=== PATIENT | female | born 1940 | race Caucasian/White ===

== ENCOUNTER 2016-07-14 20:29 | Inpatient (IN) | payer MEDICARE, OTHER ==
[~2016-07-14] VITALS: Ht 165.1 cm; Wt 48.1 kg
[~2016-07-14 20:29] MED LIST: ACET-868 PO; ASCO-340 PO; ASPI81TA2 PO; BACL10TA PO; BISA10SU8 RC; CARB1TAB21 PO; CHOL100062 PO; CLON0.5T PO; DOCU250C75 PO; DONE10TA44 PO; ENTA200T PO; HALO0.5T4 PO; LEVO75TA PO; LORA-258 PO; MAG30ORA PO; MIRT15TA7 PO; NA P133E RC; NIFE30TA91 PO; OXYC-162 PO; TEMA7.5C12 PO; VITA1TAB20 PO
--- NOTE | 2016-07-14 21:13 | NUR ---
xr at bedside.
--- NOTE | 2016-07-14 21:15 | NUR ---
started saline lock on the left forearm g20, blood drawn and sent to lab.
--- NOTE | 2016-07-14 21:18 | NUR ---
Dr Sahu at bedside for eval.
[2016-07-14 21:29] LABS: BASOPHILS # (AUTO) 0.1 /CMM (0.0-0.2); BASOPHILS % (AUTO) 0.6 % (0.0-2.0); EOSINOPHILS # (AUTO) 0.2 /CMM (0.0-0.7); EOSINOPHILS % (AUTO) 1.8 % (0.0-6.0); HEMATOCRIT 38 % (33-45); HEMOGLOBIN 12.6 g/dL (11.5-14.8); LYMPHOCYTES # (AUTO) 2.3 /CMM (0.8-4.8); LYMPHOCYTES % (AUTO) 24.3 % (20.0-44.0); MEAN CORPUSCULAR HEMOGLOBIN 31 PG (26.0-33.0); MEAN CORPUSCULAR HGB CONC 33 g/dl (31.0-36.0); MEAN CORPUSCULAR VOLUME 94 fL (82-100); MONOCYTES # (AUTO) 0.4 /CMM (0.1-1.30); MONOCYTES % (AUTO) 3.9 % (2.0-12.0); NEUTROPHILS # (AUTO) 6.6 /CMM (1.8-8.9); NEUTROPHILS % (AUTO) 69.4 % (43.0-81.0); PLATELET COUNT (AUTO) 333 /CMM (150-450); RDW COEFFICIENT OF VARIATION 14.3 (11.5-15.0); RED BLOOD CELL COUNT(AUTO) 4.07 MIL/uL (4.0-5.2); WHITE BLOOD COUNT (AUTO) 9.6 K/uL (4.3-11.0)
[2016-07-14 21:51] LABS: CALCIUM, SERUM 8.8 mg/dL (8.5-10.1); CARBON DIOXIDE 29 mmol/L (21-32); CHLORIDE 105 mmol/L (98-107); CREATININE 0.5 mg/dL (0.6-1.3); GLUCOSE 109 mg/dL (74-106); POTASSIUM 4.4 mmol/L (3.5-5.1); SODIUM SERUM 141 mmol/L (136-145); UREA NITROGEN, BLOOD 19 mg/dL (7-18)
[2016-07-14 21:54] LABS: ALANINE AMINOTRANSFERASE 7 U/L (12-78); ALBUMIN 3.1 g/dL (3.4-5.0); ALKALINE PHOSPHATASE 60 U/L (46-116); ASPARTATE AMINOTRANSFERASE 8 U/L (15-37); BILIRUBIN,DIRECT 0.1 mg/dL (0.0-0.2); BILIRUBIN,TOTAL 0.5 mg/dL (0.2-1.0); TOTAL PROTEIN, SERUM 6.6 g/dL (6.4-8.2)
[2016-07-14 21:55] LABS: TROPONIN I < 0.017 ng/mL (0.00-0.056)
[2016-07-14] MEDS ORDERED: IV SET PRIMARY PUMP SET 1 EA INFUS.SET MC ONE (21:55)
[2016-07-14] MEDS ORDERED: LEVOFLOXACIN 750 MG /D5W 150ML 150 ML IV ONE ×2 (21:55→22:00)
[2016-07-14 21:58] LABS: INR 0.91 (0.87-1.13); PROTHROMBIN TIME 9.7 SECS (9.5-12.7)
--- NOTE | 2016-07-14 22:01 | NUR ---
REPORT GIVEN TO VIKKI. PT GOING TO BED 119-2
--- NOTE | 2016-07-14 22:11 | NUR ---
RECEIVED REPORT FROM ER NURSE HERMILA
[2016-07-14] MEDS ORDERED: IPRA0.2S49 IH (22:12)
[2016-07-14] MEDS ORDERED: VITA1CAP PO (22:12)
[2016-07-14] MEDS ORDERED: SENN8.6T6 PO (22:12)
[2016-07-14] MEDS ORDERED: MULT1TAB11 PO (22:12)
[2016-07-14] MEDS ORDERED: ALBU2.5V38 NEB (22:12)
[2016-07-14 22:19] LABS: BILIRUBIN,URINE NEGATIVE (NEGATIVE); BLOOD, URINE TRACE Ery/uL (NEGATIVE); KETONES,URINE TRACE (NEGATIVE); LEUKOCYTE ESTERASE ,URINE TRACE (NEGATIVE); NITRITE, URINE NEGATIVE (NEGATIVE); PROTEIN,URINE NEGATIVE (NEGATIVE); UGLUCOSE NEGATIVE (NEGATIVE); UROBILINOGEN,URINE 0.2 EU/dL (0.2)
[2016-07-14 22:20] VITALS: BP 158/91
--- NOTE | 2016-07-14 22:20 | NUR ---
MS RN INITIAL NOTES RECEIVED PATIENT AWAKE, A/OX3, ABLE TO MAKE NEEDS KNOWN. C/O 7/10 GENERALIZED PAIN. RESPIRATIONS EVEN AND UNLABORED, ON ROOM AIR. DENIES SOB. SKIN WARM AND DRY TO TOUCH . WITH LFA 20G PATENT AND INTACT, LEVAQUIN INFUSING, NOTED WITH LFA REDNESS. INFUSION STOPPED, IV LINE FLUSHED. WILL INFORM DR. ANGELES. PATIENT DENIES FEELING ITCHY. BODY ASSESSMENT DONE. NOTED WITH GARBLED SPEECH. ORIENTED PATIENT TO ROOM AND CALL LIGHT SYSTEM. PATIENT VERBALIZED UNDERSTANDING. SIDE RAILS UP AND LOCKED. BED KEPT AT LOWEST POSITION. CALL LIGHT KEPT WITHIN EASY REACH. WILL CONTINUE TO MONITOR.
[2016-07-14 22:27] LABS: APPEARANCE,URINE CLOUDY (CLEAR); COLOR,URINE DARK YELLOW (YELLOW)
[2016-07-14] MEDS ORDERED: ALBUTEROL FS 2.5 MG/0.5 ML VIAL.NEB NEB PRN (22:30)
[2016-07-14] MEDS ORDERED: IPRATROPIUM NEB FS 0.5 MG/2.5 ML AMPUL.NEB NEB PRN (22:30)
--- NOTE | 2016-07-14 22:30 | NUR ---
MS RN NOTES REPORTED TO DR. ANGELES REGARDING PATIENT REACTION TO LEVAQUIN. PER BRIDGETTE HE WILL ADDRESS TOMORROW.
[2016-07-14 22:37] LABS: ADD URINE CULTURE NO; BACTERIA,URINE 1+ /HPF (None Seen); SQUAMOUS EPITHELIAL CELL,UR Few /HPF (None Seen); TRIPLE PHOSPHATE CRYSTAL,UR Many /HPF (None Seen); URINE AMORPHOUS URATE Many /HPF (None Seen)
--- NOTE | 2016-07-14 22:44 | NUR ---
INFORMED DR. ANGELES PATIENT REQUESTING FOR EVENING MEDICATION. OK TO CARRY OUT EVENING MEDICATIONS FROM FACILITY.
[2016-07-14] MEDS ORDERED: ENTACAPONE 200 MG TABLET ONE (22:50)
[2016-07-14] MEDS ORDERED: TEMAZEPAM 7.5 MG CAPSULE ONE (22:50)
[2016-07-14] MEDS ORDERED: CARBIDOPA/LEVODOPA 25/100 MG 1 UDTAB ONE (22:50)
[2016-07-14] MEDS ORDERED: BACLOFEN (10 MG) 10 MG TABLET ONE (22:51)
[2016-07-14] MEDS: BACLOFEN (10 MG) 10 MG TABLET PO SCH (22:58)
[2016-07-14] MEDS: TEMAZEPAM 7.5 MG CAPSULE PO PRN (22:58)
[2016-07-14] MEDS: ENTACAPONE 200 MG TABLET PO SCH (22:58)
[2016-07-14] MEDS: CARBIDOPA/LEVODOPA 25/100 MG 1 UDTAB PO SCH (22:58)
[2016-07-14] MEDS ORDERED: oxyCODONE/APAP (5/325 MG) 1 UDTAB TABLET ONE (23:03)
[2016-07-14] MEDS: oxyCODONE/APAP (5/325 MG) 1 UDTAB TABLET PO PRN (23:07)
--- NOTE | 2016-07-14 23:50 | NUR ---
ms rn notes called [facility], spoke with Ivett. per ivett patient has mech soft diet and nectar thick liquids at facility.
[2016-07-15 04:00] VITALS: BP 157/79
[2016-07-15 06:40] LABS: BASOPHILS % (AUTO) 0.3 % (0.0-2.0); EOSINOPHILS # (AUTO) 0.1 /CMM (0.0-0.7); EOSINOPHILS % (AUTO) 1.3 % (0.0-6.0); HEMATOCRIT 39 % (33-45); HEMOGLOBIN 12.9 g/dL (11.5-14.8); LYMPHOCYTES # (AUTO) 1.6 /CMM (0.8-4.8); LYMPHOCYTES % (AUTO) 14.3 % (20.0-44.0); MEAN CORPUSCULAR HEMOGLOBIN 31 PG (26.0-33.0); MEAN CORPUSCULAR HGB CONC 33 g/dl (31.0-36.0); MEAN CORPUSCULAR VOLUME 94 fL (82-100); MONOCYTES # (AUTO) 0.4 /CMM (0.1-1.30); MONOCYTES % (AUTO) 3.7 % (2.0-12.0); NEUTROPHILS % (AUTO) 80.4 % (43.0-81.0); PLATELET COUNT (AUTO) 311 /CMM (150-450); RDW COEFFICIENT OF VARIATION 14.7 (11.5-15.0); RED BLOOD CELL COUNT(AUTO) 4.16 MIL/uL (4.0-5.2); WHITE BLOOD COUNT (AUTO) 11.1 K/uL (4.3-11.0)
[2016-07-15 06:52] LABS: CALCIUM, SERUM 8.9 mg/dL (8.5-10.1); CREATININE 0.5 mg/dL (0.6-1.3); POTASSIUM 4.5 mmol/L (3.5-5.1)
--- NOTE | 2016-07-15 07:00 | NUR ---
RN NOTES RECEIVED PATIENT ON BED ,A/Ox3, RESPIRATION EVEN AND UNLABORED, ON RA, NO SOB NOTED, LFA IV SITE #20 CDI, SR UPx3, CALL LIGHT WITHIN EASY REACH , CONTINUE TO MONITOR PT CLOSELY AND NOTIFY MD FOR ANY SIGNIFICANT CHANGES.
--- NOTE | 2016-07-15 07:33 | NUR ---
MS RN CLOSING NOTES NO SIGNIFICANT CHANGES OVERNIGHT. NO RESPIRATORY DISTRESS NOTED. ALL NEEDS ANTICIPATED AND MET. KEPT CLEAN AND DRY. TURNED AND REPOSITIONED Q2 AND PRN. SIDE RAILS UP AND LOCKED. BED KEPT AT LOWEST POSITION. CALL LIGHT KEPT WITHIN EASY REACH. CONTINUITY OF CARE ENDORSED TO AM NURSE.
[2016-07-15 08:00] VITALS: BP 114/53
[2016-07-15] MEDS: CARBIDOPA/LEVODOPA 25/100 MG 1 UDTAB PO SCH ×4 (08:23→21:46)
[2016-07-15] MEDS: ENTACAPONE 200 MG TABLET PO SCH ×4 (08:23→21:46)
[2016-07-15] MEDS ORDERED: DONE5TAB34 PO (08:25)
[2016-07-15] MEDS ORDERED: NIFE30TA2 PO (08:25)
--- NOTE | 2016-07-15 10:03 | NUR ---
WOUND CARE CONSULT: PATIENT SEEN AND SKIN ASSESSMENT DONE. PATIENT WEAK, IMMOBILE, INCONTINENT, AUDIE 13, NURSING STAFF ORDERED YAIMA ISOFLEX PARUL BED AND WILL BE PLACED WHEN AVAILABLE IN THE UNIT. SEE TODAY'S SKIN ASSESSMENT IN PCS ALONG WITH RECOMMENDATIONS. RECOMMEND MOISTURE PROTECTION WITH Z GUARD ORDERED, PRESSURE PREVENTION MEASURES, TURN AND REPOSITION EVERY 2 HRS PATIENT CONDITION PERMITS, OFFLOAD BOTH HEELS. ALL DISCUSSED WITH NURSING STAFF. MD IN AGREEMENT WITH PLAN OF CARE. Addendum: 07/15/16 at 1006 by JESSICA BURCH WNDNU Amended: Links added.
[2016-07-15] MEDS ORDERED: CLINDAMYCIN IV RTU IN D5W 900 MG/50 ML PIGGYBACK IV SCH (10:30)
[2016-07-15] MEDS ORDERED: Z GUARD REMEDY 2 OZ OINT TP PRN (10:30)
[2016-07-15] MEDS ORDERED: AZTREONAM 1 G VIAL IM SCH (10:30)
[2016-07-15] MEDS ORDERED: IV NS 0.9% 250 ML IV ONE (11:08)
[2016-07-15] MEDS ORDERED: IV SET PRIMARY PUMP SET 1 EA INFUS.SET MC ONE (11:09)
[2016-07-15] MEDS ORDERED: SECONDARY IV SET 1 EA INFUS.SET MC ONE ×2 (11:09→23:12)
[2016-07-15] MEDS: AZTREONAM 1 G in IV NS 0.9% 100 ML IV SCH ×2 (11:14→21:45)
[2016-07-15] MEDS: CLINDAMYCIN 600 MG in IV D5W 50 ML IV SCH ×2 (11:20→21:45)
[2016-07-15] MEDS: Z GUARD REMEDY 2 OZ OINT TP SCH ×2 (11:23→16:00)
[2016-07-15] MEDS: oxyCODONE/APAP (5/325 MG) 1 UDTAB TABLET PO PRN (15:51)
[2016-07-15 16:00] VITALS: BP 100/52
--- NOTE | 2016-07-15 18:30 | NUR ---
RN NOTES PT HAS POOR INTAKE , DR ANGELES NOTIFIED , VSS STABLE, PT STABLE AT THIS TIME, MEDICATED PER MD ORDER , HOB ELEVATED, NO SIGNIFICANT CHANGES NOTED ON THIS SHIFT
--- NOTE | 2016-07-15 19:16 | NUR ---
all [facility] once cleared for patients safety
--- NOTE | 2016-07-15 19:30 | NUR ---
MS NORA INITIAL NOTES RECEIVED PATIENT AWAKE, ALERT AND ORIENTED. DENIES PAIN OR DISCOMFORT. DENIES SOB. WITH 2LPMO2 VIA NC. SKIN WARM AND DRY TO TOUCH. WITH LFA 20G PATENT AND INTACT TKO. SIDE RAILS UP AND LOCKED. BED KEPT AT LOWEST POSITION. HOB KEPT ELEVATED. CALL LIGHT KEPT WITHIN EASY REACH. WILL CONTINUE TO MONITOR.
[2016-07-15 20:00] VITALS: BP 129/78
[2016-07-15] MEDS: HEPARIN SODIUM, PORCINE 5000 UNITS/1 ML VIAL SQ SCH ×2 (21:00→21:47)
[2016-07-15] MEDS: BACLOFEN (10 MG) 10 MG TABLET PO SCH (21:45)
[2016-07-15] MEDS: TEMAZEPAM 7.5 MG CAPSULE PO PRN (21:46)
[2016-07-15] MEDS ORDERED: LEVOFLOXACIN (750 MG) 750 MG TABLET PO SCH (22:00)
--- NOTE | 2016-07-15 22:00 | NUR ---
ATTEMPTED TO PLACE DVT PUMPS ON PATIENT, PATIENT REFUSED TO HAVE DVT PUMPS TO BE ON, EXPLAINED THE BENEFITS AND RISKS, PATIENT SCREAMED.
--- NOTE | 2016-07-15 22:04 | NUR ---
patient refused heparin medicationx3 despite explanation of the benefits of the medication.
[2016-07-16] MEDS ORDERED: IV NS 0.9% 250 ML IV ONE (03:23)
[2016-07-16] MEDS: oxyCODONE/APAP (5/325 MG) 1 UDTAB TABLET PO PRN ×2 (03:24→15:53)
[2016-07-16 04:00] VITALS: BP 147/74
[2016-07-16] MEDS: CLINDAMYCIN 600 MG in IV D5W 50 ML IV SCH ×3 (04:33→21:12)
[2016-07-16] MEDS: AZTREONAM 1 G in IV NS 0.9% 100 ML IV SCH ×3 (04:33→21:11)
--- NOTE | 2016-07-16 06:40 | NUR ---
MS RN CLOSING NOTES NO SIGNIFICANT CHANGES OVERNIGHT. ALL DUE MEDS GIVEN. NO RESPIRATORY DISTRESS NOTED. SKIN WARM AND DRY TO TOUCH. REFUSED DVT PUMPS AND OXYGEN AT THIS TIME. SPO2 94% ON ROOM AIR. HOB KEPT ELEVATED. KEPT CLEAN AND DRY. TURNED AND REPOSITIONED Q2 AND PRN. SIDE RAILS UP AND LOCKED. BED KEPT AT LOWEST POSITION. CALL LIGHT KEPT WITHIN EASY REACH. ASPIRATION PRECAUTIONS OBSERVED. WILL ENDORSE CONTINUITY OF CARE TO AM NURSE.
--- NOTE | 2016-07-16 07:52 | NUR ---
MS1/RN AM SHIFT INITIAL NOTES RECEIVED PT ASLEEP IN BED, AROUSEABLE, PT A/O X 2, DENIES ANY SYMPTOMS, NO ACUTE RESPIRATORY DISTRESS NOTED. PT MOUTH BREATHES, ON 2L O2 VIA N/C, NOTED WITH RHONCHI LUNG SOUNDS. SATURATING @ 97%, IV SITE PATENT WITH NO S/S OF INFECTION, ON TKO. DVT PUMP OFF, PER PM NURSE PT REFUSED, AWARE OF RISKS AND BENEFITS. PT IS COMFORTABLE AT THIS TIME. SCHEDULED AM MEDS TO BE GIVEN. CHEST X-RAY BEING TAKEN. CL WITHIN REACHED AND SAFETY MAINTAINED.
[2016-07-16 08:00] VITALS: BP 143/73
[2016-07-16] MEDS: HEPARIN SODIUM, PORCINE 5000 UNITS/1 ML VIAL SQ SCH ×2 (09:00→21:00)
[2016-07-16] MEDS: Z GUARD REMEDY 2 OZ OINT TP SCH ×2 (09:16→16:07)
[2016-07-16] MEDS: ENTACAPONE 200 MG TABLET PO SCH ×4 (09:16→21:12)
[2016-07-16] MEDS: CARBIDOPA/LEVODOPA 25/100 MG 1 UDTAB PO SCH ×4 (09:16→21:12)
--- NOTE | 2016-07-16 10:06 | NUR ---
MS1/SENIOR HR GENERALIST - VIDEO SWALLOW EVAL PT LEFT MS1 FLOOR VIA BED FOR VIDEO SWALLOW EVALUATION IN STABLE CONDITION.
--- NOTE | 2016-07-16 10:40 | NUR ---
MS1/RN BACK TO UNIT FLOOR PT RETURNED TO MS1 UNIT POST VIDEO SWALLOW. PER SPEECH THERAPIST PT PASS EVALUATION, NO CHANGE IN DIET. ASPIRATION PRECAUTION OBSERVED. CARE RESUMED. ON GOING MONITORING.
[2016-07-16] MEDS ORDERED: BARIUM SULFATE 148 GM SUSP.RECON PO ONE (11:11)
[2016-07-16] MEDS ORDERED: BARIUM SULFATE 240 ML ORAL.SUSP PO ONE (11:11)
--- NOTE | 2016-07-16 13:54 | NUR ---
MS1/RN FOLLOW-UP CALL - DR. ENGLISH PLACE [address]RD CALL TO [address]. ENGLISH VIA OFFICE, FOLLOW-UP OR ORDER FOR NAUSEA MEDICATION AND TO HAVE CALL PT'S . STILL AWAITING FOR RETURN CALL. NO ACUTE CHANGE OF CONDITION. MONITORING CONTINUED.
--- NOTE | 2016-07-16 15:09 | NUR ---
MS1/RN NEW ORDER SPOKE TO DR. ENGLISH RECEIVED NEW ORDER FOR PRN ZOFRAN 4MG IVP Q6HRS FOR NAUSEA AND VOMITING AND PRN SUPPOSITORY FOR CONSTIPATION. ORDER NOTED AND CARRIED.
[2016-07-16] MEDS ORDERED: ONDANSETRON HCL/PF 4 MG/2 ML VIAL IV PRN (15:30)
[2016-07-16] MEDS ORDERED: BISACODYL SUPP (10 MG) 10 MG/SUPP.RECT SUPP.RECT RC PRN (15:30)
[2016-07-16 16:00] VITALS: BP 112/67
[2016-07-16] MEDS: LACTOBACILLUS RHAMNOSUS GG 1 EACH CAP.SPRINK PO SCH (16:06)
--- NOTE | 2016-07-16 18:00 | NUR ---
MS1/RN AFTERNOON ROUNDS ROUNDS, NO ACUTE CHANGE OF CONDITION NOTED. PT RESTING COMFORTABLY. MONITORING CONTINUED.
--- NOTE | 2016-07-16 19:00 | NUR ---
RN INITIAL NOTES: RECEIVED PT AWAKE IN BED, AROUSEABLE, PT A/O X 2, DENIES ANY SYMPTOMS, NO ACUTE RESPIRATORY DISTRESS NOTED. PT MOUTH BREATHES, ON 2L O2 VIA N/C, NOTED WITH RHONCHI LUNG SOUNDS. SATURATING @ 97%, DVT PUMP OFF, AWARE OF RISKS AND BENEFITS. PT IS COMFORTABLE AT THIS TIME. SCHEDULED AM MEDS TO BE GIVEN. CL WITHIN REACHED AND SAFETY MAINTAINED.
--- NOTE | 2016-07-16 19:00 | NUR ---
RN INITIAL NOTES: RECEIVED PT AWAKE IN BED, AROUSEABLE, PT A/O X 2, DENIES ANY SYMPTOMS, NO ACUTE RESPIRATORY DISTRESS NOTED. PT MOUTH BREATHES, ON 2L O2 VIA N/C, NOTED WITH RHONCHI LUNG SOUNDS. SATURATING @ 97%, IV SITE PATENT WITH NO S/S OF INFECTION, ON TKO. DVT PUMP OFF, PER PM NURSE PT REFUSED, AWARE OF RISKS AND BENEFITS. PT IS COMFORTABLE AT THIS TIME. CL WITHIN REACHED AND SAFETY MAINTAINED.
--- NOTE | 2016-07-16 19:15 | NUR ---
MS1/RN END NOTES NO ACUTE CHANGE OF CONDITION NOTED DURING THE SHIFT. NEEDS MET. PT ENDORSED TO PM NURSE TO CONTINUE CARE. CL WITHIN REACHED AND SAFETY MAINTAINED.
[2016-07-16 20:00] VITALS: BP 101/59
[2016-07-16] MEDS: BACLOFEN (10 MG) 10 MG TABLET PO SCH (22:23)
[2016-07-16] MEDS: TEMAZEPAM 7.5 MG CAPSULE PO PRN (22:37)
--- NOTE | 2016-07-16 23:55 | NUR ---
PT REFUSES TO BE TURNED AND REPOSITIONED. PT REFUSES TO WEAR SCD'S. PATIENT HAS BEEN MADE AWARE OF CONSEQUENCES. PT IS COMFORTABLE AND RESTING.
[2016-07-17] MEDS: oxyCODONE/APAP (5/325 MG) 1 UDTAB TABLET PO PRN ×3 (01:08→20:35)
[2016-07-17 04:00] VITALS: BP_SYST 115; BP_SYST 98; BP_DIAS 50; BP_DIAS 60
[2016-07-17] MEDS: CLINDAMYCIN 600 MG in IV D5W 50 ML IV SCH ×3 (04:54→20:35)
[2016-07-17] MEDS: AZTREONAM 1 G in IV NS 0.9% 100 ML IV SCH ×3 (05:39→20:35)
--- NOTE | 2016-07-17 07:09 | NUR ---
RN CLOSING NOTES PT IS A/O X2. NO ACUTE CHANGE OF CONDITION NOTED DURING THE SHIFT. NEEDS MET. PT ENDORSED TO AM NURSE TO CONTINUE CARE. CL WITHIN REACHED AND SAFETY MAINTAINED.
[2016-07-17 07:10] LABS: BASOPHILS # (AUTO) 0.1 /CMM (0.0-0.2); BASOPHILS % (AUTO) 0.6 % (0.0-2.0); EOSINOPHILS # (AUTO) 0.3 /CMM (0.0-0.7); EOSINOPHILS % (AUTO) 2.4 % (0.0-6.0); HEMATOCRIT 34 % (33-45); HEMOGLOBIN 11.2 g/dL (11.5-14.8); LYMPHOCYTES # (AUTO) 2.5 /CMM (0.8-4.8); LYMPHOCYTES % (AUTO) 23.1 % (20.0-44.0); MEAN CORPUSCULAR HEMOGLOBIN 31 PG (26.0-33.0); MEAN CORPUSCULAR HGB CONC 33 g/dl (31.0-36.0); MEAN CORPUSCULAR VOLUME 94 fL (82-100); MONOCYTES # (AUTO) 0.6 /CMM (0.1-1.30); MONOCYTES % (AUTO) 5.1 % (2.0-12.0); NEUTROPHILS # (AUTO) 7.5 /CMM (1.8-8.9); NEUTROPHILS % (AUTO) 68.8 % (43.0-81.0); PLATELET COUNT (AUTO) 276 /CMM (150-450); RDW COEFFICIENT OF VARIATION 14.4 (11.5-15.0); RED BLOOD CELL COUNT(AUTO) 3.62 MIL/uL (4.0-5.2); WHITE BLOOD COUNT (AUTO) 10.9 K/uL (4.3-11.0)
[2016-07-17] MEDS ORDERED: LORAZEPAM 0.5 MG TABLET PO PRN (07:30)
[2016-07-17 07:44] LABS: ALBUMIN 2.7 g/dL (3.4-5.0); BILIRUBIN,TOTAL 0.3 mg/dL (0.2-1.0); CALCIUM, SERUM 8.5 mg/dL (8.5-10.1); CREATININE 0.5 mg/dL (0.6-1.3); MAGNESIUM 1.7 mg/dL (1.8-2.4); PHOSPHORUS 4.8 mg/dL (2.5-4.9); POTASSIUM 4.4 mmol/L (3.5-5.1); TOTAL PROTEIN, SERUM 6.1 g/dL (6.4-8.2)
[2016-07-17 08:00] VITALS: BP 157/94
--- NOTE | 2016-07-17 08:00 | NUR ---
MS1/RN AM SHIFT INITIAL NOTES RECEIVED PT ASLEEP IN BED. AROUSEABLE, PT A/O X 3, ON 2L O2 VIA N/C NOTED WITH RHONCHI LUNG SOUNDS, SATURATING @ 98%. NO SOB OR FEVER. IV SITE PATENT WITH NO S/S OF INFECTION, ON TKO WITH NS @ 5CC/HR. PT IS COMFORTABLE AT THIS TIME. CL WITHIN REACHED AND SAFETY MAINTAINED. UPDATED PT'S CONDITION WITH DR. BARAJAS, PT SEEN & EXAMINED, NO NEW ORDERS RECEIVED AT THIS TIME.
[2016-07-17] MEDS ORDERED: IV D5/0.45 NACL 1,000 ML IV PRN (08:21)
[2016-07-17] MEDS ORDERED: Magnesium 1GM/D5W 100ML PREMIX 50 ML IV SCH (08:21)
[2016-07-17] MEDS: HEPARIN SODIUM, PORCINE 5000 UNITS/1 ML VIAL SQ SCH ×2 (09:00→20:43)
[2016-07-17] MEDS: CARBIDOPA/LEVODOPA 25/100 MG 1 UDTAB PO SCH ×4 (09:07→20:35)
[2016-07-17] MEDS: LACTOBACILLUS RHAMNOSUS GG 1 EACH CAP.SPRINK PO SCH ×2 (09:07→16:06)
[2016-07-17] MEDS: Z GUARD REMEDY 2 OZ OINT TP SCH ×2 (09:07→16:06)
[2016-07-17] MEDS: ENTACAPONE 200 MG TABLET PO SCH ×4 (09:07→20:35)
[2016-07-17] MEDS ORDERED: IV SET PRIMARY PUMP SET 1 EA INFUS.SET MC ONE (09:48)
[2016-07-17] MEDS ORDERED: SECONDARY IV SET 1 EA INFUS.SET MC ONE (09:54)
[2016-07-17 16:00] VITALS: BP 92/48
--- NOTE | 2016-07-17 16:00 | NUR ---
MS1/RN AFTERNOON ROUNDS PM CARE PROVIDED. NO ACUTE CHANGE OF CONDITION. IV SITE INTACT AND PATENT WITH ON GOING HYDRATION. MONITORING CONTINUED.
--- NOTE | 2016-07-17 19:22 | NUR ---
MS1/RN AM SHIFT END NOTES NO ACUTE CHANGE OF CONDITION NOTED DURING THE SHIFT. NEEDS MET. WITH ON GOING IV INFUSION OF D5,1/2NS @ 50CC/HR, IV SITE PATENT WITH NO S/S OF INFECTION. PT IS COMFORTABLE. ENDORSED TO PM NURSE TO CONTINUE CARE. CL WITHIN REACHED AND SAFETY MAINTAINED.
--- NOTE | 2016-07-17 19:29 | NUR ---
rn:ms: pt received in bed able to follow commands. complaining of nausea. no acute distress. fall precautions in place, bed alarm on. will continue to monitor closely. aspiration precautions in place.
[2016-07-17 20:00] VITALS: BP 138/80
[2016-07-17] MEDS: BACLOFEN (10 MG) 10 MG TABLET PO SCH (21:32)
[2016-07-18] MEDS: TEMAZEPAM 7.5 MG CAPSULE PO PRN (00:23)
[2016-07-18 04:00] VITALS: BP 156/82
[2016-07-18] MEDS: CLINDAMYCIN 600 MG in IV D5W 50 ML IV SCH (04:51)
[2016-07-18] MEDS: AZTREONAM 1 G in IV NS 0.9% 100 ML IV SCH (04:51)
[2016-07-18] MEDS: oxyCODONE/APAP (5/325 MG) 1 UDTAB TABLET PO PRN (05:30)
[2016-07-18 06:41] LABS: BASOPHILS % (AUTO) 0.5 % (0.0-2.0); EOSINOPHILS # (AUTO) 0.3 /CMM (0.0-0.7); EOSINOPHILS % (AUTO) 3.3 % (0.0-6.0); HEMATOCRIT 34 % (33-45); HEMOGLOBIN 11.3 g/dL (11.5-14.8); LYMPHOCYTES # (AUTO) 2.6 /CMM (0.8-4.8); LYMPHOCYTES % (AUTO) 28.3 % (20.0-44.0); MEAN CORPUSCULAR HEMOGLOBIN 32 PG (26.0-33.0); MEAN CORPUSCULAR HGB CONC 33 g/dl (31.0-36.0); MEAN CORPUSCULAR VOLUME 94 fL (82-100); MONOCYTES # (AUTO) 0.6 /CMM (0.1-1.30); MONOCYTES % (AUTO) 6.2 % (2.0-12.0); NEUTROPHILS # (AUTO) 5.7 /CMM (1.8-8.9); NEUTROPHILS % (AUTO) 61.7 % (43.0-81.0); PLATELET COUNT (AUTO) 276 /CMM (150-450); RDW COEFFICIENT OF VARIATION 14.4 (11.5-15.0); WHITE BLOOD COUNT (AUTO) 9.3 K/uL (4.3-11.0)
[2016-07-18 07:04] LABS: ALBUMIN 2.7 g/dL (3.4-5.0); BILIRUBIN,TOTAL 0.3 mg/dL (0.2-1.0); CALCIUM, SERUM 8.6 mg/dL (8.5-10.1); CREATININE 0.5 mg/dL (0.6-1.3); MAGNESIUM 1.6 mg/dL (1.8-2.4); PHOSPHORUS 3.6 mg/dL (2.5-4.9); POTASSIUM 3.9 mmol/L (3.5-5.1); TOTAL PROTEIN, SERUM 6.1 g/dL (6.4-8.2)
[2016-07-18] MEDS ORDERED: CLIN600P2 IV (07:56)
[2016-07-18] MEDS ORDERED: AZTR1VIA2 IM (07:56)
[2016-07-18 08:00] VITALS: BP 164/86
--- NOTE | 2016-07-18 08:00 | NUR ---
MS1/RN AM SHIFT INITIAL NOTES RECEIVED PT SLEEPING IN BED, AROUSEABLE, PT A/O X 3, DENIES PAIN AT THIS TIME, NO ACUTE CHANGE OF CONDITION NOTED. ON 2L O2 VIA N/C SATURATING @ 98%, NOTED WITH DIMINISHED LUNG SOUNDS. WITH ON GOING IV INFUSION OF D5, 1/2NS @ 50CC/HR, IV SITE PATENT WITH NO S/S OF INFECTION. PT IS COMFORTABLE AT THIS TIME. CL WITHIN REACHED AND SAFETY MAINTAINED. ON GOING MONITORING.
--- NOTE | 2016-07-18 08:40 | NUR ---
MS1/RN ROUNDS - DR. BARAJAS UPDATING PT'S CONDITION. PT SEEN & EXAMINED BY DR. BARAJAS, WITH ORDER RECEIVED TO DISCHARGE PT BACK TO SNF. ORDER NOTED AND CARRIED. DISCHARGE PROTOCOLS BEING PROCESSED.
[2016-07-18] MEDS ORDERED: LEVOTHYROXINE SODIUM 75 MCG TABLET PO SCH (08:44)
[2016-07-18] MEDS: ENTACAPONE 200 MG TABLET PO SCH ×2 (08:54→12:17)
[2016-07-18] MEDS: CARBIDOPA/LEVODOPA 25/100 MG 1 UDTAB PO SCH ×2 (08:54→12:17)
[2016-07-18] MEDS: LACTOBACILLUS RHAMNOSUS GG 1 EACH CAP.SPRINK PO SCH (08:54)
[2016-07-18] MEDS: HEPARIN SODIUM, PORCINE 5000 UNITS/1 ML VIAL SQ SCH (08:55)
[2016-07-18] MEDS: Z GUARD REMEDY 2 OZ OINT TP SCH (08:55)
[2016-07-18] MEDS ORDERED: MAGNESIUM OXIDE 400 MG TABLET PO ONE (11:30)
[2016-07-18 12:27] VITALS: BP 130/81
--- NOTE | 2016-07-18 12:27 | NUR ---
MS1/INTERMEDIATE MANAGER TO SNF DISCHARGE INSTRUCTIONS AND REPORT GIVEN TO AMBULANCE TRANSPORT PERSONNEL AND BETTINA BROOKS RN OF [facility]. ID BAND REMOVED, IV SITE REMOVED, PRESSURE DRESSING APPLIED, NO S/S OF INFECTION. PERSONAL BELONGINGS RETURNED TO PT, INVENTORY LOG SIGNED OFF. DISCHARGE DOCUMENTS GIVEN TO TRANSPORT PERSONNEL. PT LEFT MS1 UNIT VIA GURNEY IN STABLE CONDITION.
[2016-07-19] MEDS ORDERED: LEVOTHYROXINE SODIUM 75 MCG TABLET PO SCH (07:30)
== END 2016-07-18 12:27 | DRG 177 ==
LOC: ER 20:31 → MEDSG1 22:27
PROVIDERS: ADMIT Internal Medicine Nephrology; ATTEND Internal Medicine Nephrology
DX: J69.0 Pneumonitis due to inhalation of food and vomit (principal); G93.40 Encephalopathy, unspecified; N39.0 Urinary tract infection, site not specified; E03.9 Hypothyroidism, unspecified; I25.10 Atherosclerotic heart disease of native coronary artery without angina pectoris; K21.9 Gastro-esophageal reflux disease without esophagitis; I10 Essential (primary) hypertension; G20 Parkinson's disease; F02.80 Dementia in other diseases classified elsewhere, unspecified severity, without behavioral disturbance, psychotic disturbance, mood disturbance, and anxiety; Z88.0 Allergy status to penicillin; F09 Unspecified mental disorder due to known physiological condition; M19.90 Unspecified osteoarthritis, unspecified site; Z66 Do not resuscitate; Z88.1 Allergy status to other antibiotic agents; G89.4 Chronic pain syndrome; J40 Bronchitis, not specified as acute or chronic
CPT/HCPCS: 36415; 71010-TC; 74230-TC; 80048-TC; 80053-TC; 80076-TC; 81000-TC; 83605-TC; 83735-TC; 84100-TC; 84484-TC; 85025-TC; 85730-TC; 87040-TC; 87081-TC; 87086-TC; 92521; 97001-TC; 97003-TC; A4606; J1644; J1956; J2405; J3475; J3490; J7030; J7050; J7060; Z7610